=== PATIENT | male | born 1945 | race Caucasian/White ===

== ENCOUNTER 2025-08-18 14:00 | Outpatient (RCR) | payer MEDICARE, OTHER, SELFPAY ==
[2025-08-18 15:41] LABS: Anion Gap 9.8; Blood Urea Nitrogen 18.0 mg/dL (7.0-18.0); Calcium 8.6 mg/dL (8.5-10.1); Carbon Dioxide 30.1 mmol/L (21.0-32.0); Chloride 108 mmol/L (98-107); Estimated GFR (African America >60 (>=60 mL/min/1.73m^2); Estimated GFR (Non-African Ame >60 (>=60 mL/min/1.73m^2); Glucose 148 mg/dL (74-106); Potassium 3.9 mmol/L (3.5-5.1); Sodium 144 mmol/L (136-145)
[2025-08-18 16:15] LABS: Iron 86.0 ug/dL (65.0-175.0); Percent Iron Saturation 40.4 %; Total Iron Binding Capacity 213.0 ug/dL (250.0-450.0)
[2025-08-18 16:29] LABS: Ferritin 680.0 ng/mL (26.0-388.0)
[2025-08-18 17:26] LABS: Hematocrit 37.2 % (42.0-54.0); Hemoglobin 12.8 g/dL (14.0-18.0); Immature Granulocytes Abs Auto 0.05 10^3/uL (0.00-0.03); Immature Granulocytes Pct Auto 0.8 % (0.0-0.5); Lymphocytes Absolute Auto 1.0 10^3/uL (1.2-3.8); Mean Corpuscular HGB Conc 34.4 g/dL (29.9-35.2); Mean Corpuscular Hemoglobin 35.5 pg (25.9-34.0); Mean Corpuscular Volume 103.0 fL (80.0-94.0); Platelet Count 173 10^3/uL (150-450); Red Blood Count 3.61 10^6/uL (4.70-6.10); White Blood Count 6.1 10^3/uL (4.0-11.0)
== END 2025-08-28 23:59 | disposition home or self-care (01) ==
LOC: HEMC 14:00
PROVIDERS: Visit Provider Internal Medicine Hematology & Oncology
DX: D64.9 Anemia, unspecified (principal); K90.9 Intestinal malabsorption, unspecified; R16.1 Splenomegaly, not elsewhere classified; D50.9 Iron deficiency anemia, unspecified; E11.9 Type 2 diabetes mellitus without complications; I48.91 Unspecified atrial fibrillation; Z96.651 Presence of right artificial knee joint; Z79.82 Long term (current) use of aspirin; Z90.79 Acquired absence of other genital organ(s); Z85.46 Personal history of malignant neoplasm of prostate; D68.9 Coagulation defect, unspecified
CPT/HCPCS: 36415; 80048; 82728; 83540; 83550; 85025; 85652; 86140; G0463

== ENCOUNTER 2025-09-08 11:00 | Outpatient (RCR) | payer MEDICARE, OTHER, SELFPAY ==
[2025-09-08 11:29] LABS: Hematocrit 35.3 % (42.0-54.0); Hemoglobin 12.1 g/dL (14.0-18.0); Immature Granulocytes Abs Auto 0.03 10^3/uL (0.00-0.03); Immature Granulocytes Pct Auto 0.6 % (0.0-0.5); Lymphocytes Absolute Auto 0.9 10^3/uL (1.2-3.8); Mean Corpuscular HGB Conc 34.3 g/dL (29.9-35.2); Mean Corpuscular Hemoglobin 35.6 pg (25.9-34.0); Mean Corpuscular Volume 103.8 fL (80.0-94.0); Platelet Count 149 10^3/uL (150-450); Red Blood Count 3.40 10^6/uL (4.70-6.10); White Blood Count 4.8 10^3/uL (4.0-11.0)
[2025-09-08 12:23] LABS: Iron 168.0 ug/dL (65.0-175.0); Percent Iron Saturation 78.9 %; Total Iron Binding Capacity 213.0 ug/dL (250.0-450.0)
[2025-09-08 12:33] LABS: Ferritin 763.0 ng/mL (26.0-388.0)
== END 2025-09-27 23:59 | disposition home or self-care (01) ==
LOC: HEMC 11:00
PROVIDERS: Visit Provider Internal Medicine Hematology & Oncology
DX: D50.9 Iron deficiency anemia, unspecified (principal); D64.9 Anemia, unspecified; R16.1 Splenomegaly, not elsewhere classified; K90.9 Intestinal malabsorption, unspecified; E11.9 Type 2 diabetes mellitus without complications; I48.91 Unspecified atrial fibrillation; Z79.01 Long term (current) use of anticoagulants; Z96.651 Presence of right artificial knee joint; D62 Acute posthemorrhagic anemia; D68.9 Coagulation defect, unspecified; Z85.46 Personal history of malignant neoplasm of prostate; Z90.79 Acquired absence of other genital organ(s)
CPT/HCPCS: 36415; 82728; 83540; 83550; 85025; G0463

== ENCOUNTER 2025-10-20 15:15 | Outpatient (RCR) | payer MEDICARE, OTHER, SELFPAY ==
[2025-10-06 13:56] LABS: Hematocrit 35.2 % (42.0-54.0); Hemoglobin 11.8 g/dL (14.0-18.0); Immature Granulocytes Abs Auto 0.01 10^3/uL (0.00-0.03); Immature Granulocytes Pct Auto 0.2 % (0.0-0.5); Lymphocytes Absolute Auto 1.1 10^3/uL (1.2-3.8); Mean Corpuscular HGB Conc 33.5 g/dL (29.9-35.2); Mean Corpuscular Hemoglobin 34.6 pg (25.9-34.0); Mean Corpuscular Volume 103.2 fL (80.0-94.0); Platelet Count 157 10^3/uL (150-450); Red Blood Count 3.41 10^6/uL (4.70-6.10); White Blood Count 6.1 10^3/uL (4.0-11.0)
[2025-10-06 14:07] LABS: Anion Gap 11.7; Blood Urea Nitrogen 22.0 mg/dL (7.0-18.0); Calcium 8.8 mg/dL (8.5-10.1); Carbon Dioxide 30.2 mmol/L (21.0-32.0); Chloride 108 mmol/L (98-107); Estimated GFR (African America >60 (>=60 mL/min/1.73m^2); Estimated GFR (Non-African Ame >60 (>=60 mL/min/1.73m^2); Glucose 138 mg/dL (74-106); Potassium 3.9 mmol/L (3.5-5.1); Sodium 146 mmol/L (136-145)
[2025-10-06 14:42] LABS: Iron 77.0 ug/dL (65.0-175.0); Percent Iron Saturation 36.0 %; Total Iron Binding Capacity 214.0 ug/dL (250.0-450.0)
[2025-10-06 15:19] LABS: Ferritin 1230.0 ng/mL (26.0-388.0)
[2025-10-13 13:43] LABS: Hematocrit 35.9 % (42.0-54.0); Hemoglobin 12.1 g/dL (14.0-18.0); Immature Granulocytes Abs Auto 0.05 10^3/uL (0.00-0.03); Immature Granulocytes Pct Auto 0.7 % (0.0-0.5); Lymphocytes Absolute Auto 0.9 10^3/uL (1.2-3.8); Mean Corpuscular HGB Conc 33.7 g/dL (29.9-35.2); Mean Corpuscular Hemoglobin 34.9 pg (25.9-34.0); Mean Corpuscular Volume 103.5 fL (80.0-94.0); Platelet Count 169 10^3/uL (150-450); Red Blood Count 3.47 10^6/uL (4.70-6.10); White Blood Count 7.1 10^3/uL (4.0-11.0)
[2025-10-13 14:35] LABS: Iron 86.0 ug/dL (65.0-175.0); Percent Iron Saturation 41.5 %; Total Iron Binding Capacity 207.0 ug/dL (250.0-450.0)
[2025-10-13 15:04] LABS: Anion Gap 8.3; Blood Urea Nitrogen 14.0 mg/dL (7.0-18.0); Calcium 8.9 mg/dL (8.5-10.1); Carbon Dioxide 30.8 mmol/L (21.0-32.0); Chloride 110 mmol/L (98-107); Estimated GFR (African America >60 (>=60 mL/min/1.73m^2); Estimated GFR (Non-African Ame >60 (>=60 mL/min/1.73m^2); Glucose 132 mg/dL (74-106); Potassium 4.1 mmol/L (3.5-5.1); Sodium 145 mmol/L (136-145)
[2025-10-13 15:26] LABS: Ferritin 909.0 ng/mL (26.0-388.0)
[2025-10-20 15:13] LABS: Hematocrit 36.5 % (42.0-54.0); Hemoglobin 12.1 g/dL (14.0-18.0); Immature Granulocytes Abs Auto 0.01 10^3/uL (0.00-0.03); Immature Granulocytes Pct Auto 0.2 % (0.0-0.5); Lymphocytes Absolute Auto 1.0 10^3/uL (1.2-3.8); Mean Corpuscular HGB Conc 33.2 g/dL (29.9-35.2); Mean Corpuscular Hemoglobin 34.2 pg (25.9-34.0); Mean Corpuscular Volume 103.1 fL (80.0-94.0); Platelet Count 182 10^3/uL (150-450); Red Blood Count 3.54 10^6/uL (4.70-6.10); White Blood Count 6.3 10^3/uL (4.0-11.0)
[2025-10-20 16:06] LABS: Anion Gap 10.4; Blood Urea Nitrogen 17.0 mg/dL (7.0-18.0); Calcium 8.6 mg/dL (8.5-10.1); Carbon Dioxide 31.0 mmol/L (21.0-32.0); Chloride 107 mmol/L (98-107); Estimated GFR (African America >60 (>=60 mL/min/1.73m^2); Estimated GFR (Non-African Ame >60 (>=60 mL/min/1.73m^2); Glucose 141 mg/dL (74-106); Potassium 4.4 mmol/L (3.5-5.1); Sodium 144 mmol/L (136-145)
[2025-10-20 16:11] LABS: Iron 84.0 ug/dL (65.0-175.0); Percent Iron Saturation 41.4 %; Total Iron Binding Capacity 203.0 ug/dL (250.0-450.0)
[2025-10-20 16:51] LABS: Ferritin 1144.0 ng/mL (26.0-388.0)
== END 2025-10-28 23:59 | disposition home or self-care (01) ==
LOC: HEMC 15:15
PROVIDERS: Visit Provider Internal Medicine Hematology & Oncology
DX: C61 Malignant neoplasm of prostate (principal); D64.9 Anemia, unspecified; R16.1 Splenomegaly, not elsewhere classified; D50.9 Iron deficiency anemia, unspecified; K90.9 Intestinal malabsorption, unspecified; I48.91 Unspecified atrial fibrillation; Z96.652 Presence of left artificial knee joint; Z95.818 Presence of other cardiac implants and grafts
CPT/HCPCS: 36415; 80048; 82728; 83540; 83550; 85025; 85652; 86140; G0463